=== PATIENT | male | born 1995 | race Caucasian/White ===

== ENCOUNTER 2017-02-25 12:33 | Emergency (ER) | payer MEDICAID ==
[~2017-02-25] VITALS: Ht 170.2 cm; Wt 63.0 kg
[2017-02-25] MEDS ORDERED: SODIUM CHLORIDE 0.9% 1,000 ML IV ONE (13:20)
[2017-02-25 14:04] LABS: BASOPHILS % 0.4 % (0.0-2.0); EOSINOPHILS % 0.2 % (0.0-5.0); HEMATOCRIT. 41.3 % (42.0-52.0); LYMPHOCYTES % 9.1 % (20.0-50.0); MEAN CORPUSCULAR HEMOGLOBIN 32.1 pg (28.0-32.0); MEAN CORPUSCULAR HGB CONC 33.8 g/dL (31.0-37.0); MEAN CORPUSCULAR VOLUME 94.9 fL (80.0-94.0); MEAN PLATELET VOLUME 7.8 fl (7.4-10.4); MONOCYTES % 6.1 % (2.0-8.0); NEUTROPHILS % 84.2 % (40.0-76.0); PLATELET 200 x1000/uL (130-400); RED BLOOD CELL COUNT 4.35 mill/uL (4.7-6.1)
[2017-02-25 14:14] LABS: ALANINE AMINOTRANSFERASE 48 IU/L (13-61); ALBUMIN 4.1 g/dL (3.4-5.0); ANION GAP 11; CALCIUM 9.2 mg/dL (8.5-10.1); CARBON DIOXIDE 28 mEq/L (21-32); CHLORIDE 102 mEq/L (98-107); INDEX HEMOLYSI 1 (1-3); INDEX ICTERIC 1 (1-4); INDEX LIPEMIC 1 (1-3); UREA NITROGEN BLOOD 12 mg/dL (7-21); eGFR > 60 mL/min (>60)
[2017-02-25 14:19] LABS: TROPONIN I < 0.02 ng/mL (0.00-0.04)
[2017-02-25 16:10] VITALS: BP 124/66
== END 2017-02-25 16:11 | disposition home or self-care (01) ==
LOC: ER 12:38
DX: R55 Syncope and collapse (principal); E16.2 Hypoglycemia, unspecified; R56.9 Unspecified convulsions; R11.10 Vomiting, unspecified
CPT/HCPCS: 36415; 70450; 80053; 82962; 84484; 85025; 96360; 96361; 99285; J7030; Z7610